=== PATIENT | female | born 2000 | race Caucasian/White ===

== ENCOUNTER 2022-04-21 09:33 | Emergency (ER) | payer OTHER ==
[~2022-04-21] VITALS: Ht 157.5 cm; Wt 65.6 kg
[2022-04-21 09:34] VITALS: BP 119/67
[2022-04-21] MEDS ORDERED: IBUP200T46 PO (09:39)
[2022-04-21] MEDS ORDERED: XULA1DIS TOP (09:39)
[2022-04-21] MEDS ORDERED: AMOX875T2 PO (12:08)
[2022-04-21] MEDS ORDERED: BENZ1LOZ9 PO (12:08)
== END 2022-04-21 12:19 | disposition home or self-care (01) ==
LOC: M ED 09:33
DX: J03.90 Acute tonsillitis, unspecified (principal); R05.9 Cough, unspecified

== ENCOUNTER → 2022-05-20 | Outpatient (REF) | payer OTHER ==
[~2022-05-20] MED LIST: AMOX875T2 PO; BENZ1LOZ9 PO; IBUP200T46 PO; XULA1DIS TOP
== END ==
LOC: M PLALAB 11:01
PROVIDERS: ATTEND Advanced Practice Midwife
DX: Z01.419 Encounter for gynecological examination (general) (routine) without abnormal findings (principal)
CPT/HCPCS: 36415; G0123; G0463

== ENCOUNTER → 2022-05-20 | Outpatient (CLI) | payer OTHER | LOC: M PLALAB 12:18 | PROVIDERS: ATTEND Advanced Practice Midwife | DX: Z80.3 Family history of malignant neoplasm of breast (principal) ==

== ENCOUNTER → 2023-07-28 | Outpatient (CLI) | payer OTHER | LOC: M RAD 09:36 | PROVIDERS: ATTEND Advanced Practice Midwife | DX: R10.2 Pelvic and perineal pain (principal); N94.10 Unspecified dyspareunia ==

== ENCOUNTER → 2023-08-19 | Outpatient (REF) | payer OTHER ==
[2023-08-19 13:18] LABS: APPEARANCE, URINE CLEAR (CLEAR); BACTERIA, URINE AUTO NEGATIVE (NEGATIVE); BILIRUBIN, URINE AUTO NEGATIVE (NEGATIVE); BLOOD, URINE BLOOD NEGATIVE (NEGATIVE); COLOR, URINE STRAW (YELLOW); GLUCOSE, URINE (UA) AUTO NEGATIVE (NEGATIVE); KETONE, URINE AUTO NEGATIVE (NEGATIVE); LEUKOCYTE ESTERASE, URINE AUTO NEGATIVE (NEGATIVE); NITRITE, URINE AUTO NEGATIVE (NEGATIVE); PROTEIN, URINE AUTO NEGATIVE (NEGATIVE); RBC, URINE AUTO 1 /HPF (0-3); SPECIFIC GRAVITY URINE AUTO 1.005 (1.002-1.035); SQUAMOUS EPITHELIAL CELL UR AU 0 /HPF (0-6); UROBILINOGEN, URINE AUTO 0.2 mg/dL (0.0-2.0); WBC, URINE AUTO 0 /HPF (0-3)
== END ==
LOC: M PLALAB 09:40
PROVIDERS: ATTEND Advanced Practice Midwife
DX: R10.2 Pelvic and perineal pain (principal); N94.10 Unspecified dyspareunia

== ENCOUNTER → 2024-05-13 | Outpatient (REF) | payer OTHER ==
[~2024-05-13] MED LIST changes: +DEPO150I IM; +DOXY-441 PO; +MUCI600T31 PO
== END ==
LOC: M LAB REF 12:31
PROVIDERS: ATTEND Physician Assistant
DX: B34.9 Viral infection, unspecified (principal)

== ENCOUNTER 2024-05-14 08:32 | Emergency (ER) | payer OTHER ==
[~2024-05-14] VITALS: Ht 157.5 cm; Wt 76.4 kg
[~2024-05-14 08:32] MED LIST changes: -DEPO150I IM; -DOXY-441 PO; -MUCI600T31 PO
[2024-05-14] MEDS ORDERED: DEPO150I IM (08:45)
[2024-05-14 10:28] LABS: URINE PREG TEST NEGATIVE (NEGATIVE)
[2024-05-14] MEDS ORDERED: MUCI600T31 PO (11:07)
[2024-05-14] MEDS ORDERED: DOXY-441 PO (11:07)
[2024-05-14 11:13] VITALS: BP 143/90; TEMP 96.7; O2SAT 97
== END 2024-05-14 11:20 | disposition home or self-care (01) ==
LOC: M ED 08:32
DX: J18.9 Pneumonia, unspecified organism (principal); Z79.1 Long term (current) use of non-steroidal anti-inflammatories (NSAID); Z79.2 Long term (current) use of antibiotics; Z79.3 Long term (current) use of hormonal contraceptives

== ENCOUNTER → 2025-02-01 | Outpatient (REF) | payer OTHER ==
[~2025-02-01] MED LIST changes: +BENZ200C70 PO; +DEPO150I IM; +DOXY-441 PO; +MUCI600T31 PO
== END ==
LOC: M PLALAB 10:59
PROVIDERS: ATTEND Advanced Practice Midwife
DX: Z12.4 Encounter for screening for malignant neoplasm of cervix (principal); R87.612 Low grade squamous intraepithelial lesion on cytologic smear of cervix (LGSIL)

== ENCOUNTER 2025-02-11 07:45 | Outpatient (RCR) | payer OTHER | END 2025-02-14 | LOC: M PT 07:45 | PROVIDERS: ATTEND Family Medicine | DX: N94.2 Vaginismus (principal) ==

== ENCOUNTER 2025-03-04 07:45 | Outpatient (RCR) | payer OTHER | END 2025-03-17 | LOC: M PT 07:45 | PROVIDERS: ATTEND Family Medicine | DX: N94.2 Vaginismus (principal) ==

== ENCOUNTER → 2025-03-15 | Outpatient (REF) | payer OTHER | LOC: M PLALAB 14:03 | PROVIDERS: ATTEND Advanced Practice Midwife | DX: R87.612 Low grade squamous intraepithelial lesion on cytologic smear of cervix (LGSIL) (principal) ==

== ENCOUNTER 2025-03-27 09:15 | Outpatient (RCR) | payer OTHER | END 2025-04-16 | LOC: M PT 09:15 | PROVIDERS: ATTEND Family Medicine | DX: N94.2 Vaginismus (principal) ==

== ENCOUNTER → 2025-05-21 | Outpatient (RCR) | LOC: M EMPSKH 05-12 13:40 → EDUNIT# 05-12 13:40 | PROVIDERS: ATTEND Family Medicine | DX: Z20.828 Contact with and (suspected) exposure to other viral communicable diseases (principal) ==

== ENCOUNTER → 2025-06-26 | Outpatient (REF) | payer OTHER ==
[2025-06-26 15:15] LABS: BASO # 0.0 10^3/uL (0.0-0.2); BASO % 0.5 % (0.0-1.0); EOS # 0.1 10^3/uL (0.0-0.5); EOS % 0.7 % (0.0-3.0); LYMPH # 1.7 10^3/uL (1.5-5.0); LYMPH % 19.0 % (24.0-44.0); MONO # 0.5 10^3/uL (0.0-0.8); MONO % 6.1 % (2.0-8.0); NEUTROPHILS # 6.4 10^3/uL (1.5-8.5); NEUTROPHILS % 73.2 % (36.0-66.0); PLATELET COUNT, AUTOMATED 303 10^3/uL (150-450)
[2025-06-26 15:43] LABS: ALT/SGPT 25 U/L (7.0-40); AST/SGOT 18 U/L (<34); CALCIUM LEVEL 9.9 MG/DL (8.5-10.1); CARBON DIOXIDE LEVEL 25 MMOL/L (20-31); CHLORIDE LEVEL 102 MMOL/L (98-107); CHOLESTEROL LEVEL 224 MG/DL (<200); CHOLESTEROL RISK RATIO 3.16 (<5); CREATININE FOR GFR 0.65 MG/DL (0.55-1.30); GLOMERULAR FILTRATION RATE > 90.0 (>60); IRON (FE) 77 UG/DL (50-170); LDL CHOLESTEROL 128.6 MG/DL (<100); NON-HDL-C 153.2 MG/DL; PERCENT SATURATION 20.1 % (13.2-45.0); POTASSIUM SERUM 4.2 MMOL/L (3.5-5.1); SODIUM LEVEL 136 MMOL/L (136-145); TRIGLYCERIDES LEVEL 123 MG/DL (<150)
[2025-06-26 15:45] LABS: FREE T4 1.31 NG/DL (0.89-1.76)
== END ==
LOC: M LAB REF 14:41
PROVIDERS: ATTEND Student in an Organized Health Care Education/Training Program
DX: R03.0 Elevated blood-pressure reading, without diagnosis of hypertension (principal); Z86.2 Personal history of diseases of the blood and blood-forming organs and certain disorders involving the immune mechanism; Z68.31 Body mass index [BMI] 31.0-31.9, adult